=== PATIENT | male | born 1940 | race Asian ===

== ENCOUNTER 2016-11-01 13:50 | Inpatient (IN) | payer OTHER ==
--- NOTE | 2016-11-01 14:39 | PDOC ---
History of Present Illness <Leonel Crisostomo - Last Filed: 11/01/16 18:03> - General History Source: Patient Exam Limitations: No Limitations - History of Present Illness Initial Comments: 11/01/16 15:15 76y M hx of severe chf, hl, htn, dm, ?afib? on xerolto, has been having increased b/l LE edema and anasarca for atleast 3 weeks, has been attempting to manage this as an outpatient with , dr. rico wanted the pt to come to the ED for admission on thursday but the pt really didnt want to come. The pt has also been complainng of increasing sob, andhad an episode of cp 3 days ago. Pt notes mild cough, no fever/chills, current cp, n/v/d, abd pain. Pt currently on torsimide 150 BID. <Nehemias Ferrell - Last Filed: 11/02/16 09:16> - General Chief Complaint: Respiratory Stated Complaint: SOB Time Seen by Provider: 11/01/16 14:37 Past History <Leonel Crisostomo - Last Filed: 11/01/16 18:03> - Past Medical History Anemia: Yes Asthma: No Cancer: No Cardiac Disorders: Yes (ANGINA) CVA: No COPD: No CHF: No Dementia: No Diabetes: Yes (NIDDM) GI Disorders: No Disorders: No HTN: Yes Hypercholesterolemia: Yes Liver Disease: No Seizures: No Thyroid Disease: No - Surgical History Abdominal Surgery: No Appendectomy: No Cardiac Surgery: No Cholecystectomy: No Lung Surgery: No Neurologic Surgery: No Orthopedic Surgery: No - Psycho/Social/Smoking Cessation Hx Suicidal Ideation: No Smoking History: Never smoked Have you smoked in the past 12 months: No Hx Alcohol Use: No Drug/Substance Use Hx: No Substance Use Type: None Hx Substance Use Treatment: No <Nehemias Ferrell - Last Filed: 11/02/16 09:16> - Past Medical History Allergies/Adverse Reactions: Allergies Allergy/AdvReac Type Severity Reaction Status Date / Time No Known Drug Allergies Allergy Verified 11/01/16 13:56 Home Medications: Ambulatory Orders Atorvastatin Ca [Lipitor] 10 mg PO HS 11/01/16 Famotidine 20 mg PO DAILY 11/01/16 Glipizide Xl [Glucotrol Xl -] 5 mg PO DAILY 11/01/16 Insulin Glargine,Hum.rec.anlog [Lantus (nf)] 0 units SQ HS 11/01/16 Insulin Lispro [Humalog] 100 unit SQ ASDIR 11/01/16 Isosorbide Mononitrate [Isosorbide Mononitrate ER] 30 mg PO DAILY 11/01/16 Metoprolol Tartrate [Lopressor -] 50 mg PO BID 11/01/16 Potassium Citrate [Potassium Citrate ER] 10 meq PO DAILY 11/01/16 Rivaroxaban [Xarelto -] 15 mg PO DAILY 11/01/16 Sitagliptin Phosphate [Januvia] 50 mg PO DAILY 11/01/16 Torsemide 150 mg PO BID 11/01/16 Review of Systems - Review of Systems Able to Perform ROS?: Yes Comments:: 11/01/16 15:54 Constitutional - no reported Fever, Chills, weakness, HEENT: no reported vision changes, sore throat Respiratory: + sob, no reported cough, hemoptysis Cardiac: + chest pain, leg swelling no reported palpitations, light headedness , Abd/GI: no reported abd pain, nausea, vomiting, blood per rectum, melena, diarrhea : no reported dysuria, frequency, discharge Musculskelatal - no reported back pain, joint swelling skin - no reported bruising, erythema, rash neurological: no reported headache, numbness, focal weakness, tingling, ataxia, weakness hematologic: no reported anemia, easy bruising, easy bleeding <Nehemias Ferrell - Last Filed: 11/02/16 09:16> *Physical Exam - Vital Signs Last Vital Signs Temp Pulse Resp BP Pulse Ox 98.3 F 71 20 130/80 98 11/01/16 17:39 11/01/16 17:39 11/01/16 17:39 11/01/16 17:39 11/01/16 17:39 <Leonel Crisostomo - Last Filed: 11/01/16 18:03> - Vital Signs Last Vital Signs Temp Pulse Resp BP Pulse Ox 97.8 F 60 20 127/73 98 11/01/16 13:52 11/01/16 13:52 11/01/16 13:52 11/01/16 13:52 11/01/16 13:52 - Physical Exam Comments: 11/01/16 15:55 GENERAL: The patient is awake, alert, and fully oriented, Nontoxic - in no acute distress. HEAD: Normocephalic, atraumatic. EYES: extraocular movements intact, sclera anicteric, conjunctiva clear. ENT: Normal voice, Moist mucous membranes. NECK: Normal range of motion, supple LUNGS: Breath sounds equal, clear to auscultation bilaterally. No wheezes, no rhonchi, no rales. HEART: Regular rate and rhythm, normal S1 and S2 without murmur, rub or gallop. ABDOMEN: Soft, nontender, normoactive bowel sounds. No guarding, no rebound. . No CVA tenderness EXTREMITIES: Normal range of motion, +2pitting edema to abdomen. No clubbing or cyanosis. No cords, erythema, or tenderness. NEUROLOGICAL: No facial assymetry, Normal speech, moving all 4 extremitie spontaneously and symmetrically PSYCH: Normal mood, normal affect. SKIN: Warm, Dry, normal turgor, <Nehemias Ferrell - Last Filed: 11/02/16 09:16> Heart Score/ECG Review - ECG Impressions Comment:: 11/01/16 15:58 Twelve-lead EKG was performed and reviewed by me. Irregularly irregular Rate of [address] depressions in the inferior and lateral leads QTc interval of 505 Atrial fibrillation <Nehemias Ferrell - Last Filed: 11/02/16 09:16> ED Treatment Course - LABORATORY CBC & Chemistry Diagram: 11/01/16 14:45 11/01/16 14:45 - ADDITIONAL ORDERS Additional order review: Laboratory Results 11/01/16 11/01/16 14:45 14:45 INR 2.38 H Sodium 121 L* Potassium 4.0 Chloride 86 L D Carbon Dioxide 20 L Anion Gap 15 BUN 44 H D Creatinine 2.5 H Creat Clearance w eGFR 25.10 Random Glucose 284 H Calcium 8.8 Total Bilirubin 2.3 H D AST 65 H D ALT 91 H D Alkaline Phosphatase 409 H D Creatine Kinase 195 Creatine Kinase Index 3.3 CK-MB (CK-2) 6.581 H Troponin I 0.29 H B-Natriuretic Peptide 4032.31 H Total Protein 8.1 Albumin 3.6 11/01/16 14:45 RBC 4.55 MCV 79.1 L MCHC 32.5 RDW 16.4 H MPV 9.5 Neutrophils % 77.9 Lymphocytes % 9.1 Monocytes % 12.1 H Eosinophils % 0.5 Basophils % 0.4 <AayushLeonel briseno - Last Filed: 11/01/16 18:03> - LABORATORY CBC & Chemistry Diagram: 11/02/16 05:35 11/02/16 05:35 - RADIOLOGY Radiology Studies Ordered: Category Date Time Status CHEST X-RAY PORTABLE* [RAD] Stat Radiology 11/01/16 14:38 Ordered <Nehemias Ferrell - Last Filed: 11/02/16 09:16> Medical Decision Making - Medical Decision Making 11/01/16 18:[address] Rico. He will recommend lasix, but patient is upstairs already, so he will call for orders. <Leonel Crisostomo - Last Filed: 11/01/16 18:03> - Medical Decision Making 11/01/16 15:55 76-year-old gentleman multiple medical problems sent in from cardiology and PMD for evaluation of worsening anasarca, extremity edema. The patient has been failing outpatient management for his heart failure, patient has noted increasing shortness of breath as well as an episode of chest pain 3 days ago I suspect edema/anasaraca from chf labs reviewed hyponatremic to 120 [address] pts cr sightly above baseline at 2.5 pts lfts also elevated --> suspect from heart failure trop borderline and bnp at 400s cxr suggestion of infiltrate in L chest however pt not having any symptoms suggestive of anemia. 11/01/16 16:03 labs reviewed noted for severe hyponatermia case kush cabrera agreed with admission - requests consulting dr. rico and admission to the hosptialist team. A portion of this note was documented by scribe services under my direction. I have reviewed the details of the note, within reason, and agree with the documentation with the following case summary and management plan written by me 11/01/16 16:13 case kush vazquez agreed with admission asked for icu consultation case kush lizarraga and [employer] CONSULTANT ludmila from icu will give pt diuretic, sodium likely due to his anasarca will monitor, if worsening will upgrade to icu stable or tele for now. Case discussed in detail with admitting physician including history, physical exam and ancillary studies. Admitting physician has assumed care for the patient, will follow all pending diagnostics and will complete the evaluation and treatment. <Nehemias Ferrell - Last Filed: 11/02/16 09:16> *DC/Admit/Observation/Transfer - Attestations Scribe Attestion: 11/01/16 18:04 Documentation prepared by Leonel Crisostomo, acting as medical consultant for Nehemias Ferrell MD, MD. <Leonel Crisostomo - Last Filed: 11/01/16 18:03> - Discharge Dispostion Admit: Yes <Nehemias Ferrell - Last Filed: 11/02/16 09:16> Diagnosis at time of Disposition: Anasarca CHF (congestive heart failure) Qualifiers: Congestive heart failure type: combined Congestive heart failure chronicity: unspecified congestive heart failure chronicity Qualified Code(s): I50.40 - Unspecified combined systolic (congestive) and diastolic (congestive) heart failure - Referrals
[2016-11-01 14:53] LABS: BASOPHIL 0.4 % (0-2.0); EOSINOPHIL 0.5 % (0-4.5); MCH 25.7 pg (25.7-33.7); MCHC 32.5 g/dl (32.0-35.9); MEAN CELL VOLUME 79.1 fl (80-96); MEAN PLT VOLUME 9.5 fl (7.5-11.1); NEUTROPHILS 77.9 % (42.8-82.8); PLATELET COUNT 182 K/MM3 (134-434); RDW 16.4 % (11.9-15.9); WHITE BLOOD COUNT 8.8 K/mm3 (4.0-10.0)
[2016-11-01 15:05] LABS: INR 2.38 (0.82-1.09); PROTHROMBIN TIME (PATIENT) 26.7 SEC (9.98-11.88)
[2016-11-01 15:13] LABS: ALBUMIN 3.6 g/dl (3.4-5.0); BILIRUBIN,TOTAL 2.3 mg/dL (0.2-1.0); CALCIUM 8.8 mg/dL (8.5-10.1); CREATININE 2.5 mg/dL (0.7-1.3); TOT PROT 8.1 g/dl (6.4-8.2)
[2016-11-01 15:16] LABS: TROPONIN I 0.29 ng/ml (0.00-0.05)
[2016-11-01] MEDS ORDERED: IBUPROFEN 600 MG TABLET (FP) PO PRN (18:15)
[2016-11-01] MEDS ORDERED: FUROSEMIDE 40 MG/4 ML INJECTABLE VIAL IVPUSH ONE (18:16)
--- NOTE | 2016-11-01 18:20 | EKG ---
Test Reason : Blood Pressure : / mmHG Vent. Rate : 063 BPM Atrial Rate : 312 BPM P-R Int : 000 ms QRS Dur : 094 ms QT Int : 494 ms P-R-T Axes : 000 113 235 degrees QTc Int : 505 ms ATRIAL FIBRILLATION RIGHT AXIS DEVIATION PROLONGED QT ABNORMAL ECG NO PREVIOUS ECGS AVAILABLE Confirmed by JUDY GONZALEZ MD ([id number]) on 11/01/2016 6:20:00 PM Referred By: Confirmed By:JUDY GONZALEZ MD
--- NOTE | 2016-11-01 18:50 | HP ---
CHIEF COMPLAINT: "I have too much fluid and cant breathe " PCP: Dr Vaz Cardio: Dr Soriano Renal: Dr Trujillo HISTORY OF PRESENT ILLNESS: This is a 76 yo M with PMH of severe diastolic CHF, HTN, Poorly controlled IDDM (A1c=11.5) and a fib on xeralto, who presents due to chf exacerbation. Patient has gained over 10 lb in the past 3 weeks and noticed increased LE and abd edema. His orthopnea worsened (from 4 pillows to sitting up completely), he developed progressive sob, unable to take a deep breath because of abdominal girth, occasional l sided chest discomfort (pressure, pain) and occasional palpitations. He is unable to perform simple activities of daily living. He has been developing anorexia and constipation but denies n/v or abd pain. He also noticed decreased urine output but denies flank pain. He has a chronic dry cough. Denies seizure like activity or change in mental status. He has been treated by Dr Soriano for the past several years. Dr soriano performed a TTE on thu and urged patient o go to ED however patient refused until now. Patient is on toprol xl 50 bid, isosorbide 30 d and his torsemide was recently increased to 150 bid. His Na runs 129-130 at baseline, drops a week after he gets a dose of metolazone, which he received earlier this week. Patient has been refusing to get hospitalized for his chronic diastolic CHF to receive IV diuretics. Patient also complains of R sided TMJ joint pain exacerbated by chewing ER course was notable for: (1)CXR (2)labs Recent Travel: denies PAST MEDICAL HISTORY: as above PAST SURGICAL HISTORY:denies Social History: lives with brother in law Smoking:denies Alcohol:denies Drugs: denies Family History: chf, mi Allergies No Known Drug Allergies Allergy (Verified 11/01/16 13:56) HOME MEDICATIONS: Home Medications Medication Instructions Recorded Atorvastatin Ca [Lipitor] 10 mg PO HS 11/01/16 Famotidine 20 mg PO DAILY 11/01/16 Glipizide Xl [Glucotrol Xl -] 5 mg PO DAILY 11/01/16 Insulin Glargine,Hum.rec.anlog 0 units SQ HS 11/01/16 [Lantus (nf)] Insulin Lispro [Humalog] 100 unit SQ ASDIR 11/01/16 Isosorbide Mononitrate [Isosorbide 30 mg PO DAILY 11/01/16 Mononitrate ER] Metoprolol Tartrate [Lopressor -] 50 mg PO BID 11/01/16 Potassium Citrate [Potassium 10 meq PO DAILY 11/01/16 Citrate ER] Rivaroxaban [Xarelto -] 15 mg PO DAILY 11/01/16 Sitagliptin Phosphate [Januvia] 50 mg PO DAILY 11/01/16 Torsemide 100 mg PO BID 11/01/16 REVIEW OF SYSTEMS CONSTITUTIONAL: Absent: fever, chills HEENT: Absent: rhinorrhea, nasal congestion, throat pain, throat swelling, difficulty swallowing CARDIOVASCULAR: Absent: syncope RESPIRATORY: Absent: wheezing, stridor, hemoptysis GASTROINTESTINAL: Absent: abdominal pain, nausea, vomiting, diarrhea, melena, hematochezia GENITOURINARY: Absent: dysuria MUSCULOSKELETAL: Absent: back pain, neck pain SKIN: Absent: rash, itching, pallor HEMATOLOGIC/IMMUNOLOGIC: Absent: frequent infections ENDOCRINE: Absent: heat intolerance, cold intolerance NEUROLOGIC: Absent: headache, focal weakness or paresthesias PSYCHIATRIC: Absent: anxiety, depression PHYSICAL EXAMINATION Vital Signs - 24 hr 11/01/16 17:39 Temperature 98.3 F Pulse Rate [ 71 Left Radial] Respiratory 20 Rate Blood Pressure 130/80 [Left Arm] O2 Sat by Pulse 98 Oximetry (%) GENERAL: Awake, alert, and fully oriented, in mild distress. HEAD: Normal with no signs of trauma. EYES: Pupils equal, round and reactive to light, extraocular movements intact, sclera anicteric, conjunctiva clear. No lid lag. EARS, NOSE, THROAT: Moist mucous membranes. NECK: supple + JVD LUNGS: diffuse ronchi HEART: irregularly irregular, normal S1 and S2 without murmur, rub or gallop. ABDOMEN: Soft, nontender, distended, very edematous 3+ reduced bowel sounds MUSCULOSKELETAL: NNo CVA tenderness. UPPER EXTREMITIES: 2+ pulses, warm, well-perfused. No peripheral edema. LOWER EXTREMITIES: 2+ pulses, warm, well-perfused. 3+ peripheral edema. stasis dermatitis b/l NEUROLOGICAL: Cranial nerves II-XII grossly intact. PSYCHIATRIC: Cooperative. Good eye contact. Appropriate mood and affect. SKIN: Warm, dry ASSESSMENT/PLAN: This is a 76 yo M with PMH of severe diastolic CHF, HTN, Poorly controlled IDDM (A1c=11.5) and a fib on xeralto, who presents due to chf exacerbation. Acute on chronic HFPEF -Obtain recent TTE from Dr Soriano -tele monitoring -IV diuresis lasix 80 IV BID. Consider lasix drip -Dr Soriano: needs lasix 100 IVP. Prior to that would like renal opinion about whether to start him on Samsca -TFTs, Lipid panel -Strict I and O -daily weight -perez -continue home isosorbide 30d, toprol xl 50 d -hold torsemide 150 bid -asa 81 -pt -watch for metabolic alkalosis with diuresis -CMP BID for now HTN -diurese CHRISTIANO on CKD -baseline creat 2.3 now 2.5 -diurese Hyponatremia -baseline Na 129 now 121 -partially due to free water retention -recent metolazone intake -diurese -renal consult transaminitis -due to failure/congestion -trend lfts -hold lipitor 10 hs a fib -continue xeralto DM -a1c (last 11.5) -BGM -novolog sliding scale -levemir 15 bid (gentle starting dose) -diabetic diet FEN no ivf na, Cl, will improve with diuresis Diabetic diet Dispo: admit tele Problem List - Problem (1) Anasarca Code(s): R60.1 - GENERALIZED EDEMA (2) CHF (congestive heart failure) Code(s): I50.9 - HEART FAILURE, UNSPECIFIED Qualifiers: Congestive heart failure type: combined Congestive heart failure chronicity: unspecified congestive heart failure chronicity Qualified Code(s ): I50.40 - Unspecified combined systolic (congestive) and diastolic (congestive ) heart failure (3) (HFpEF) heart failure with preserved ejection fraction Code(s): I50.30 - UNSPECIFIED DIASTOLIC (CONGESTIVE) HEART FAILURE (4) Acute on chronic diastolic CHF (congestive heart failure) Code(s): I50.33 - ACUTE ON CHRONIC DIASTOLIC (CONGESTIVE) HEART FAILURE (5) CHRISTIANO (acute kidney injury) Code(s): N17.9 - ACUTE KIDNEY FAILURE, UNSPECIFIED (6) Cardiorenal disease Code(s): I13.10 - HYP HRT & CHR KDNY DIS W/O HRT FAIL, W STG 1-4/UNSP CHR KDNY (7) HTN (hypertension) Code(s): I10 - ESSENTIAL (PRIMARY) HYPERTENSION (8) Pulmonary congestion Code(s): R09.89 - OTH SYMPTOMS AND SIGNS INVOLVING THE CIRC AND RESP SYSTEMS (9) Volume overload Code(s): E87.70 - FLUID OVERLOAD, UNSPECIFIED (10) Lower extremity edema Code(s): R60.0 - LOCALIZED EDEMA (11) Uncontrolled diabetes mellitus Code(s): E11.65 - TYPE 2 DIABETES MELLITUS WITH HYPERGLYCEMIA Visit type - Emergency Visit Emergency Visit: Yes ED Registration Date: 11/01/16 Care time: The patient presented to the Emergency Department on the above date and was hospitalized for further evaluation of their emergent condition. - New Patient This patient is new to me today: Yes Date on this admission: 11/01/16 - Critical Care Critical Care patient: No
--- NOTE | 2016-11-01 18:53 | PN ---
Teaching Attending Note Name of Resident: Shannon Esparza ATTENDING PHYSICIAN STATEMENT I saw and evaluated the patient. I reviewed the resident's note and discussed the case with the resident. I agree with the resident's findings and plan as documented. SUBJECTIVE: This is a 76-year-old man with a history of CHF, HTN, hyperlipidemia , atrial fib, type 2 DM who comes to the ER with worsening edema, worsening SOB and weight gain over the last 3 weeks. He was advised to be admitted earlier in the week but he refused. He was given a dose of Zaroxolyn at that time but he has continued to worsen. OBJECTIVE: Vital Signs Period Temp Pulse Resp BP Sys/Meier Pulse Ox Last 24 Hr 97.8 F-98.4 F 60-71 20-22 127-136/73-80 93-100 HEART: Irregularly irregular LUNGS: Bibasilar rales ABDOMEN: Soft, distended, non-tender, normal BS EXTREMITIES: 3+ edema up to upper abdomen ASSESSMENT AND PLAN: 1. Acute on chronic right heart failure - Admit to telemetry - Hold Torsemide - Lasix IV - Monitor intake and output, weight - Cardiology consult 2. Acute kidney injury on stage 4 CKD, possibly cardiorenal syndrome - Monitor BUN, creatinine with diuresis 3. Hyponatremia - Secondary to diuretics and fluid overload - IV Lasix and monitor electrolytes 4. Chest pain - Serial troponins 5. Uncontrolled type 2 diabetes mellitus - Hold Januvia, Glucotrol XL - Continue Lantus - Fingersticks with Novolog sliding scale 6. Permanent atrial fibrillation - Rate controlled - Continue Lopressor, Xarelto 7. Hypertension - Continue Lopressor
[2016-11-01] MEDS: ASPIRIN 81 MG CHEWABLE TABLETS PO SCH (18:57)
[2016-11-01 20:02] LABS: INR 2.19 (0.82-1.09); PROTHROMBIN TIME (PATIENT) 24.5 SEC (9.98-11.88)
[2016-11-01 21:55] LABS: MAGNESIUM 2.2 mg/dL (1.8-2.4); PHOSPHOROUS 4.7 mg/dL (2.5-4.9)
[2016-11-01 21:57] LABS: ALBUMIN 3.5 g/dl (3.4-5.0); CALCIUM 8.5 mg/dL (8.5-10.1); CREATININE 2.5 mg/dL (0.7-1.3); TOT PROT 7.6 g/dl (6.4-8.2)
[2016-11-01] MEDS: INSULIN SLIDING SCALE (NOVOLOG) 1 VIAL SQ SCH (22:11)
[2016-11-01] MEDS: METOPROLOL SUCCINATE 50 MG TAB.SR.24H (FP) PO SCH (22:12)
[2016-11-01] MEDS: INSULIN DETEMIR 100 UNITS/ML MDV SQ SCH (22:12)
[2016-11-01] MEDS ORDERED: ALBUTEROL SO4 2.5/IPRATROPIUM 0.5 INH SOL 3 ML VIAL.NEB. NEB ONE (23:34)
[2016-11-02] MEDS ORDERED: ALBUTEROL SO4 0.083% IH SOL 2.5 MG/3 ML VIAL.NEB. NEB ONE ×2 (05:16→21:50)
[2016-11-02] MEDS: ALBUTEROL SO4 0.042% IH SOL 1.25 MG/3 ML VIAL.NEB NEB PRN ×3 (05:19→22:10)
[2016-11-02] MEDS ORDERED: FUROSEMIDE 40 MG/4 ML INJECTABLE VIAL IVPUSH SCH (06:00)
[2016-11-02] MEDS: INSULIN SLIDING SCALE (NOVOLOG) 1 VIAL SQ SCH ×3 (06:30→17:23)
[2016-11-02 07:27] LABS: MCH 25.8 pg (25.7-33.7); MCHC 32.9 g/dl (32.0-35.9); MEAN CELL VOLUME 78.4 fl (80-96); MEAN PLT VOLUME 9.4 fl (7.5-11.1); PLATELET COUNT 148 K/MM3 (134-434); RDW 16.2 % (11.9-15.9); WHITE BLOOD COUNT 6.7 K/mm3 (4.0-10.0)
[2016-11-02 08:00] LABS: ALBUMIN 3.5 g/dl (3.4-5.0); CALCIUM 8.7 mg/dL (8.5-10.1); MAGNESIUM 2.3 mg/dL (1.8-2.4)
[2016-11-02 08:09] LABS: CREATININE 2.5 mg/dL (0.7-1.3); FREE T4 1.38 ng/dl (0.76-1.16); PHOSPHOROUS 4.2 mg/dL (2.5-4.9); THYROID STIMULATING HORMONE 1.89 uIU/ml (0.358-3.74); TOT PROT 7.5 g/dl (6.4-8.2)
--- NOTE | 2016-11-02 09:05 | CON.CARD ---
Consult Consult Specialty:: cardio Referred by:: george Reason for Consultation:: chf - History of Present Illness Chief Complaint: chf History of Present Illness: 76 yo male followed by me in office with acute on chronic HFpEF of late, here for worsening swelling and new dizziness. has known HFpEF with at least moderate (possibly worse) pulmonary HTN on echo and evidence of RV dysfunction. being followed for me for <1 year. has had partial response to oral diuretics (torsemide 100mg am/50mg pm), with residual JVD but resolution of sob. chronic hyponatremia with Na at baseline 129-133. several months ago given one dose metolazone 2.5mg, sodium dropped to high 120s and took approx 2 weeks to come back up. seen by dr torres renal as outpt, labwork sent off, ? results. recently his weight went up several lbs and he developed incr swelling with signif incr sob. torsemide incr'd to 100 bid with no response. saw me in office, had repeat echo showing similar findings to above. i rec'd (again) inpatient diuresis with IV but he declined. i advised them we could try lower dose metolazone (1.25mg) and monitor Na, which he opted for instead--wt did not decline (169-170) but Na dropped from 129 to 126. i continued torsemide 100 bid and pt was to repeat labs and see me in office on 11/04. i informed pt and dtr that he will need RHC as i suspect his pulm HTN and RV dysfunction are out of proportion to LV diast failure, and this may be predominantly a pulm HTN phenomenon--he is considering the procedure. had stress test <1 yr ago (nuclear)--no ischemic felt discomfort in abdomen radiating to chest and back recently; resolved on its own; not severe; no assctd diaph/acute sob with it; felt like he had gas at the time PMH: afib HTN HPL DM CKD - Alcohol/Substance Use Hx Alcohol Use: No - Smoking History Smoking history: Never smoked Have you smoked in the past 12 months: No Home Medications - Allergies Allergies/Adverse Reactions: Allergies Allergy/AdvReac Type Severity Reaction Status Date / Time No Known Drug Allergies Allergy Verified 11/01/16 13:56 - Home Medications Home Medications: Ambulatory Orders Atorvastatin Ca [Lipitor] 10 mg PO HS 11/01/16 Famotidine 20 mg PO DAILY 11/01/16 Glipizide Xl [Glucotrol Xl -] 5 mg PO DAILY 11/01/16 Insulin Glargine,Hum.rec.anlog [Lantus (nf)] 0 units SQ HS 11/01/16 Insulin Lispro [Humalog] 100 unit SQ ASDIR 11/01/16 Isosorbide Mononitrate [Isosorbide Mononitrate ER] 30 mg PO DAILY 11/01/16 Metoprolol Tartrate [Lopressor -] 50 mg PO BID 11/01/16 Potassium Citrate [Potassium Citrate ER] 10 meq PO DAILY 11/01/16 Rivaroxaban [Xarelto -] 15 mg PO DAILY 11/01/16 Sitagliptin Phosphate [Januvia] 50 mg PO DAILY 11/01/16 Torsemide 150 mg PO BID 11/01/16 Family Disease History - Family Disease History Family History: Denies (no cmp) Review of Systems - Review of Systems Constitutional: denies: Chills, Fever Eyes: denies: Eye Pain HENT: denies: Nasal Congestion Neck: denies: Stiffness Cardiovascular: denies: Palpitations Respiratory: denies: Orthopnea, PND Gastrointestinal: denies: Diarrhea, Rectal Bleeding Genitourinary: denies: Burning, Hematuria Musculoskeletal: denies: Muscle Pain Integumentary: denies: Rash Neurological: denies: Numbness, Seizure, Syncope Endocrine: denies: Excessive Sweating Hematology/Lymphatic: denies: Excessive Bleeding Vital Signs: Vital Signs Temperature 97.7 F 11/02/16 05:23 Pulse Rate 70 11/02/16 05:23 Respiratory Rate 20 11/02/16 05:23 Blood Pressure 126/63 11/02/16 05:23 O2 Sat by Pulse Oximetry (%) 96 11/01/16 21:00 Constitutional: Yes: Well Nourished, No Distress Eyes: No: Sclera Icterus HENT: No: Nasal Congestion Neck: No: Decreased ROM Respiratory: Yes: CTA Bilaterally, Rales (bases). No: Accessory Muscle Use, Wheezes Gastrointestinal: Yes: Normal Bowel Sounds. No: Distention, Hepatomegaly, Palpable Mass, Tenderness Cardiovascular: Yes: Regular Rate and Rhythm JVD: Yes Carotid Bruit: No PMI: Non-Displaced Heart Sounds: Yes: S1, S2. No: Gallop Murmur: No: Systolic Murmur, Diastolic Murmur Musculoskeletal: Yes: Other (No kyphosis) Extremities: No: Cold Edema: Yes (2-3+ pretib) Peripheral Pulses: 2+ Left Carotid, 2+ Right Carotid, 2+ Left Doralis Pedis, 2+ Right Dorsalis Pedis Integumentary: No: Jaundice Neurological: Yes: Alert, Oriented (x3) Psychiatric: No: Agitated - Other Data Labs, Other Data: CBC, BMP 11/02/16 05:35 11/02/16 05:35 INR, PTT INR 2.19 (0.82-1.09) H 11/01/16 19:30 Troponin, BNP 11/01/16 11/02/16 11/02/16 21:15 03:00 05:35 Troponin I 0.25 H 0.25 H 0.22 H Troponin, BNP 11/01/16 11/02/16 11/02/16 21:15 03:00 05:35 Troponin I 0.25 H 0.25 H 0.22 H Laboratory Tests 11/02/16 11/02/16 11/02/16 03:00 05:35 05:35 WBC Hgb Plt Count Sodium 125 L Potassium 3.6 BUN 47 H Creatinine 2.5 H AST 60 H ALT 85 H Troponin I 0.25 H 0.22 H TSH 1.89 11/02/16 05:35 WBC 6.7 Hgb 10.7 L Plt Count 148 Sodium Potassium BUN Creatinine AST ALT Troponin I TSH tele: afib, HRs controlled Imaging - Results Chest X-ray: Report Reviewed, Image Reviewed Assessment/Plan acute on chronic HFpEF: -? 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 right sided pressures up with JVD but no sx's) 160s, recently up to 170 -11/02: 175 lbs; CXR reviewed: diffuse interstitial markings with infiltrate L base; no effusions or vascular redistrib--? all chf hyponatremia: -baseline Na 129-132 -was 126 few days ago s/o metolazone 1.25mg dose at home -121 on admit here--coming up overnight to 125 -per renal Afib: -HRs controlled on metoprolol -cont Xarelto 15mg (dose is per pt preference) elevated troponin: -NOT ACS -trop 0.2 x 4--secondary to chf/hi filling pressures -atypical cp sx's highly suggestive of gas/bloating/GI description abnl ECG: -ecg here afib, R axis, diffuse ST-Ts, prolonged QT -replete K (Mag good) -need to compare to prior office tracing -no clinical signs ACS CKD: -baseline creat 1.9-2.1; -currently worse (2.5), sec to cardiorenal syndrome most likely -observe trend with diuresis -cont nitrates (ismo) elevated AST/LT: -likely sec to RV failure/hepatic congestion -observe with diuresis HTN: -controlled -same meds HPL: -cont home statin DM: -per dr cabrera/hospitalists
[2016-11-02 09:33] LABS: TROPONIN I 0.23 ng/ml (0.00-0.05)
[2016-11-02] MEDS: PANTOPRAZOLE 20 MG TABLET (FP) PO SCH (09:39)
[2016-11-02] MEDS: ASPIRIN 81 MG CHEWABLE TABLETS PO SCH (09:39)
[2016-11-02] MEDS: RIVAROXABAN 15 MG TABLET PO SCH (09:39)
[2016-11-02] MEDS: METOPROLOL SUCCINATE 50 MG TAB.SR.24H (FP) PO SCH ×2 (09:39→21:19)
[2016-11-02] MEDS: RANITIDINE HCL 150 MG TABLET (FP) PO SCH (09:39)
[2016-11-02] MEDS: INSULIN DETEMIR 100 UNITS/ML MDV SQ SCH ×2 (09:40→21:19)
[2016-11-02] MEDS ORDERED: ISOSORBIDE MONONITRATE 30 MG TAB.SR.24H (FP) PO SCH (10:00)
[2016-11-02] MEDS: FUROSEMIDE 40 MG/4 ML INJECTABLE VIAL IVPUSH SCH ×2 (10:25→14:25)
--- NOTE | 2016-11-02 10:57 | PN ---
Progress Note (short form) - Note Progress Note: Subjective: feels his breathins is better , no fever or chills , no abd pain . Feels a little better today . Abd distention is better . and LE edema is better Objective: Vital Signs: Last Vital Signs Temp Pulse Resp BP Pulse Ox 98.4 F 71 20 121/63 98 11/02/16 10:00 11/02/16 10:00 11/02/16 10:00 11/02/16 10:00 11/02/16 09:00 Intake & Output 10/30/16 10/31/16 11/01/16 11/02/16 23:59 23:59 23:59 23:59 Output Total 700 900 Balance -700 -900 Weight 170 lb 175 lb 3.2 oz Physical Exam: NAD , CV: irreg irreg, No MRG, JVD Lungs: crackles half way down and scattered wheezes . Abd : distended , abd wall edema . no TTP Ext : 2+ pitting edema with erythema and no discharge Labs: Laboratory Results - last 24 hr 11/01/16 11/01/16 11/01/16 14:45 14:45 14:45 WBC 8.8 D RBC 4.55 Hgb 11.7 Hct 36.0 MCV 79.1 L MCHC 32.5 RDW 16.4 H Plt Count 182 D MPV 9.5 Neutrophils % 77.9 Lymphocytes % 9.1 Monocytes % 12.1 H Eosinophils % 0.5 Basophils % 0.4 INR 2.38 H Sodium 121 L* Potassium 4.0 Chloride 86 L D Carbon Dioxide 20 L Anion Gap 15 BUN 44 H D Creatinine 2.5 H Creat Clearance w eGFR 25.10 POC Glucometer Random Glucose 284 H Hemoglobin A1c % Calcium 8.8 Phosphorus Magnesium Total Bilirubin 2.3 H D AST 65 H D ALT 91 H D Alkaline Phosphatase 409 H D Creatine Kinase 195 Creatine Kinase Index 3.3 CK-MB (CK-2) 6.581 H Troponin I 0.29 H B-Natriuretic Peptide 4032.31 H Total Protein 8.1 Albumin 3.6 Triglycerides Cholesterol Total LDL Cholesterol HDL Cholesterol TSH Free T4 11/01/16 11/01/16 11/01/16 19:15 19:15 19:30 WBC RBC Hgb Hct MCV MCHC RDW Plt Count MPV Neutrophils % Lymphocytes % Monocytes % Eosinophils % Basophils % INR 2.19 H Sodium 122 L* Potassium 4.0 Chloride 87 L Carbon Dioxide 21 Anion Gap 14 BUN 47 H Creatinine 2.5 H Creat Clearance w eGFR 25.10 POC Glucometer Random Glucose 334 H* Hemoglobin A1c % Calcium 8.5 Phosphorus 4.7 D Magnesium 2.2 Total Bilirubin 2.0 H AST 57 H ALT 86 H Alkaline Phosphatase 381 H Creatine Kinase Creatine Kinase Index CK-MB (CK-2) Troponin I B-Natriuretic Peptide Total Protein 7.6 Albumin 3.5 Triglycerides Cholesterol Total LDL Cholesterol HDL Cholesterol TSH Free T4 11/01/16 11/01/16 11/02/16 21:15 22:10 03:00 WBC RBC Hgb Hct MCV MCHC RDW Plt Count MPV Neutrophils % Lymphocytes % Monocytes % Eosinophils % Basophils % INR Sodium Potassium Chloride Carbon Dioxide Anion Gap BUN Creatinine Creat Clearance w eGFR POC Glucometer 310 Random Glucose Hemoglobin A1c % Calcium Phosphorus Magnesium Total Bilirubin AST ALT Alkaline Phosphatase Creatine Kinase Creatine Kinase Index CK-MB (CK-2) Troponin I 0.25 H 0.25 H B-Natriuretic Peptide Total Protein Albumin Triglycerides Cholesterol Total LDL Cholesterol HDL Cholesterol TSH Free T4 11/02/16 11/02/16 11/02/16 05:35 05:35 05:35 WBC RBC Hgb Hct MCV MCHC RDW Plt Count MPV Neutrophils % Lymphocytes % Monocytes % Eosinophils % Basophils % INR Sodium 125 L Potassium 3.6 Chloride 89 L Carbon Dioxide 23 Anion Gap 13 BUN 47 H Creatinine 2.5 H Creat Clearance w eGFR 25.10 POC Glucometer Random Glucose 210 H D Hemoglobin A1c % 11.6 H Calcium 8.7 Phosphorus 4.2 Magnesium 2.3 Total Bilirubin 2.0 H AST 60 H ALT 85 H Alkaline Phosphatase 372 H Creatine Kinase Creatine Kinase Index CK-MB (CK-2) Troponin I 0.23 H 0.22 H B-Natriuretic Peptide Total Protein 7.5 Albumin 3.5 Triglycerides 70 Cholesterol 92 Total LDL Cholesterol Cancelled HDL Cholesterol 29 L TSH 1.89 Free T4 1.38 H 11/02/16 11/02/16 11/02/16 05:35 05:38 08:00 WBC 6.7 RBC 4.16 Hgb 10.7 L Hct 32.6 L MCV 78.4 L MCHC 32.9 RDW 16.2 H Plt Count 148 MPV 9.4 Neutrophils % Lymphocytes % Monocytes % Eosinophils % Basophils % INR Sodium Potassium Chloride Carbon Dioxide Anion Gap BUN Creatinine Creat Clearance w eGFR POC Glucometer 207 Random Glucose Hemoglobin A1c % Calcium Phosphorus Magnesium Total Bilirubin AST ALT Alkaline Phosphatase Creatine Kinase Creatine Kinase Index CK-MB (CK-2) Troponin I 0.23 H B-Natriuretic Peptide Total Protein Albumin Triglycerides Cholesterol Total LDL Cholesterol HDL Cholesterol TSH Free T4 Current Medications Generic Name Dose Route Start Last Admin Trade Name Freq PRN Reason Stop Dose Admin Albuterol Sulfate 1 amp 11/02/16 05:00 11/02/16 05:19 Ventolin 0.042trength) - NEB 1 amp Q4H PRN Administration SHORT OF BREATH/WHEEZING Aspirin 81 mg 11/01/16 18:30 11/02/16 09:39 Asa - PO 81 mg DAILY RENEE Administration Furosemide 100 mg 11/02/16 10:00 Lasix Injection - IVPUSH BIDLASIX RENEE Ibuprofen 600 mg 11/01/16 18:15 Motrin - PO Q6H PRN FEVER Insulin Aspart 1 vial 11/01/16 18:30 11/02/16 06:30 Novolog Vial Sliding Scale - SQ 4 units TIDAC RENEE Administration Protocol Insulin Detemir 15 units 11/01/16 22:00 11/02/16 09:40 Levemir Vial SQ 15 units BID RENEE Administration Isosorbide Mononitrate 30 mg 11/02/16 10:00 11/02/16 09:39 Imdur - PO 30 mg DAILY RENEE Administration Metoprolol Succinate 50 mg 11/01/16 22:00 11/02/16 09:39 Toprol Xl - PO 50 mg BID RENEE Administration Pantoprazole Sodium 20 mg 11/02/16 10:00 11/02/16 09:39 Protonix - PO 20 mg DAILY RENEE Administration Potassium Chloride 20 meq 11/02/16 10:00 K-Dur - PO DAILY RENEE Ranitidine HCl 150 mg 11/02/16 10:00 11/02/16 09:39 Zantac - PO 150 mg DAILY RENEE Administration Rivaroxaban 15 mg 11/02/16 10:00 11/02/16 09:39 Xarelto - PO 15 mg DAILY RENEE Administration Imaging: Cxray reviewed. Assessment/Plan: 76 y/o man with h/o Diastolic CHF , HTN, CKD , A fib on xarelto , and untreated anxiety . He presented with worsening LE edema , SOB , and hyponatremia . 1- Acute on chronic D CHF : sx slightly improved. Cxray still congested EKG with R axis , inverted T waves in lateral and inferior leads - lasix 100 BID . - weight daily and I&O - cont BB . - case d/w Dr. Rico . will need a R heart cath . - echo as an out pt showed NL EF. 2- Hyponatremia : due to heart failure and metolazone use - already improved appropriately with diuresis . - cont diuresis - repeat NA today 3- A fib : rate controlled on current meds - cont BB - cont xarelto 4- CHRISTIANO on CKD : renal function worse due to decreased [employer]. expect it to improve with diuresis - cont diuresis and monitor - dc ibuprofen and avoid nephrotoxic meds 5- DM : at home on n januvia 50 and glipizide xl 5 mg , as well as lantus and SSI of humalog . A1c 11 . need more control - hold po pills and cont insulin - levemir 15 BID - SSI - at dc will decrease januvia barr to 25 fro renal function 6- HLOC Visit type - Emergency Visit Emergency Visit: Yes ED Registration Date: 11/01/16 Care time: The patient presented to the Emergency Department on the above date and was hospitalized for further evaluation of their emergent condition. - New Patient This patient is new to me today: No - Critical Care Critical Care patient: No
[2016-11-02] MEDS: POTASSIUM CHLORIDE TABS 20 MEQ TABLET.ER (FP) PO SCH (11:26)
[2016-11-02 12:11] VITALS: BMI 28.3
--- NOTE | 2016-11-02 12:11 | CON.NEP ---
Consult Consult Specialty:: Nephrology Reason for Consultation:: hyponatremia - History of Present Illness Chief Complaint: dyspnea History of Present Illness: This is a 76 year old man with a history of ckd, htn, dm, chf who presents for dyspnea and hyponatremia. He has been retaining fluid and has been dyspneic. Recently has also been having LUTS. He was placed on metolazone and worsened his hyponatremia. He is followed by Dr Trujillo. - History Source History Provided By: Family Member, Medical Record Limitations to Obtaining History: No Limitations - Past Medical History Cardio/Vascular: Yes: CHF, HTN Renal/: Yes: Renal Inusuff, BPH Endocrine: Yes: Diabetes Mellitus - Alcohol/Substance Use Hx Alcohol Use: No - Smoking History Smoking history: Never smoked Have you smoked in the past 12 months: No Home Medications - Allergies Allergies/Adverse Reactions: Allergies Allergy/AdvReac Type Severity Reaction Status Date / Time No Known Drug Allergies Allergy Verified 11/01/16 13:56 - Home Medications Home Medications: Ambulatory Orders Atorvastatin Ca [Lipitor] 10 mg PO HS 11/01/16 Famotidine 20 mg PO DAILY 11/01/16 Glipizide Xl [Glucotrol Xl -] 5 mg PO DAILY 11/01/16 Insulin Glargine,Hum.rec.anlog [Lantus (nf)] 20 units SQ HS 11/01/16 Insulin Lispro [Humalog] See Protocol SQ AC 11/01/16 Isosorbide Mononitrate [Isosorbide Mononitrate ER] 30 mg PO DAILY 11/01/16 Metoprolol Tartrate [Lopressor -] 50 mg PO BID 11/01/16 Potassium Citrate [Potassium Citrate ER] 10 meq PO BID 11/01/16 Rivaroxaban [Xarelto -] 15 mg PO DAILY 11/01/16 Sitagliptin Phosphate [Januvia] 50 mg PO DAILY 11/01/16 Torsemide 150 mg PO BID 11/01/16 Review of Systems - Review of Systems Constitutional: reports: Weakness Eyes: reports: No Symptoms HENT: reports: No Symptoms Neck: reports: No Symptoms Cardiovascular: reports: Edema, Shortness of Breath Respiratory: reports: Orthopnea Gastrointestinal: reports: No Symptoms Genitourinary: reports: Frequency, Other (hesitancy) Musculoskeletal: reports: No Symptoms Integumentary: reports: No Symptoms Neurological: reports: No Symptoms Endocrine: reports: No Symptoms Hematology/Lymphatic: reports: No Symptoms Psychiatric: reports: No Symptoms Nephrology Consult - Height Height: 5 ft 6 in - Weight Weight: 175 lb 3.2 oz - BMI Body Mass Index (BMI): 28.3 - Lab Results CBC,BMP: CBC, BMP 11/02/16 05:35 11/02/16 05:35 Anion Gap: Anion Gap 13 (8-16) 11/02/16 05:35 - Imaging Chest X-ray: Report Reviewed EKG: Report Reviewed (afib) - Physical Examination Vital Signs: Vital Signs Temperature 98.4 F 11/02/16 10:00 Pulse Rate 71 11/02/16 10:00 Respiratory Rate 20 11/02/16 10:00 Blood Pressure 121/63 11/02/16 10:00 O2 Sat by Pulse Oximetry (%) 98 11/02/16 09:00 Constitutional: Yes: Well Nourished Eyes: Yes: Conjunctiva Clear HENT: Yes: Atraumatic, Normocephalic Neck: Yes: Supple, Trachea Midline Cardiovascular: Yes: Pulse Irregular Respiratory: Yes: Rales Gastrointestinal: Yes: Normal Bowel Sounds, Abdomen, Obese, Ascites Renal/: Yes: Perez Present Edema: Yes Edema: LLE: 2+, RLE: 2+ Integumentary: Yes: WNL Neurological: Yes: Alert, Oriented Psychiatric: Yes: Alert, Oriented Assessment/Plan IMPRESSION hyponatremia from congestive failure pt has anasarca from heart failure alphonso/ckd BPH with LUTS may be contributing to renal dysfunction and fluid retention PLAN discussed with cardiology will keep on loop diuretics. If po does ot work can try IV (preferrable) tolvaptan is an option would keep perez in place no flomax for now since it can drop BP but will start at some point renal sono avoid nephrotoxins including NSAIDS MV
[2016-11-02] MEDS ORDERED: PT OWN MED DRAWER 7, Y5N ONE ×2 (12:20→17:10)
[2016-11-02 14:11] LABS: CALCIUM 8.7 mg/dL (8.5-10.1); CREATININE 2.6 mg/dL (0.7-1.3)
[2016-11-02] MEDS ORDERED: LIDOCAINE HCL 2% JELLY (30 ML/TUBE) TP ONE (16:35)
[2016-11-02] MEDS ORDERED: ACETAMINOPHEN 325 MG TABLET (FP) PO ONE (21:02)
[2016-11-03] MEDS ORDERED: ALBUTEROL SO4 0.083% IH SOL 2.5 MG/3 ML VIAL.NEB. NEB ONE (03:09)
[2016-11-03] MEDS: ALBUTEROL SO4 0.042% IH SOL 1.25 MG/3 ML VIAL.NEB NEB PRN (03:32)
[2016-11-03] MEDS: INSULIN SLIDING SCALE (NOVOLOG) 1 VIAL SQ SCH ×3 (06:39→16:55)
[2016-11-03] MEDS: FUROSEMIDE 40 MG/4 ML INJECTABLE VIAL IVPUSH SCH (06:39)
[2016-11-03 07:51] LABS: CALCIUM 8.5 mg/dL (8.5-10.1); CREATININE 2.7 mg/dL (0.7-1.3); MAGNESIUM 2.5 mg/dL (1.8-2.4)
--- NOTE | 2016-11-03 09:01 | PN ---
Progress Note, Physician Chief Complaint: chf History of Present Illness: less sob, slept well overnight; dtr says abd much less distended, legs less swollen; no cp, palpit no cigs - Current Medication List Current Medications: Active Medications Albuterol Sulfate (Ventolin 0.042trength) -) 1 amp NEB Q4H PRN PRN Reason: SHORT OF BREATH/WHEEZING Last Admin: 11/03/16 03:32 Dose: 1 amp Aspirin (Asa -) 81 mg PO DAILY [facility] Last Admin: 11/02/16 09:39 Dose: 81 mg Furosemide (Lasix Injection -) 100 mg IVPUSH BIDLASIX [facility] Last Admin: 11/03/16 06:39 Dose: 100 mg Insulin Aspart (Novolog Vial Sliding Scale -) 1 vial SQ TIDAC [facility] PRN Reason: Protocol Last Admin: 11/03/16 06:39 Dose: 2 units Insulin Detemir (Levemir Vial) 15 units SQ BID [facility] Last Admin: 11/02/16 21:19 Dose: 15 units Isosorbide Mononitrate (Imdur -) 30 mg PO DAILY [facility] Last Admin: 11/02/16 09:39 Dose: 30 mg Metoprolol Succinate (Toprol Xl -) 50 mg PO BID [facility] Last Admin: 11/02/16 21:19 Dose: 50 mg Pantoprazole Sodium (Protonix -) 20 mg PO DAILY [facility] Last Admin: 11/02/16 09:39 Dose: 20 mg Potassium Chloride (K-Dur -) 20 meq PO DAILY [facility] Last Admin: 11/02/16 11:26 Dose: 20 meq Ranitidine HCl (Zantac -) 150 mg PO DAILY [facility] Last Admin: 11/02/16 09:39 Dose: 150 mg Rivaroxaban (Xarelto -) 15 mg PO DAILY [facility] Last Admin: 11/02/16 09:39 Dose: 15 mg - Objective Vital Signs: Vital Signs Temperature 98.4 F 11/03/16 06:00 Pulse Rate 86 11/03/16 06:00 Respiratory Rate 22 11/03/16 06:00 Blood Pressure 133/70 11/03/16 06:00 O2 Sat by Pulse Oximetry (%) 98 11/02/16 21:00 Constitutional: Yes: No Distress, Calm Eyes: No: Sclera Icterus HENT: No: Nasal Congestion Cardiovascular: Yes: Pulse Irregular, JVD, S1, S2, Other (PMI non diplaced). No : Gallop, Murmur Respiratory: Yes: CTA Bilaterally, Rales (bases). No: Accessory Muscle Use, Wheezes Gastrointestinal: Yes: Normal Bowel Sounds, Soft. No: Tenderness Musculoskeletal: Yes: Other (No kyphosis) Extremities: No: Cold Edema: Yes (3+ ankles, 1+ pretib) Integumentary: No: Jaundice Neurological: Yes: Alert, Oriented (x3) Psychiatric: No: Agitated Labs: CBC, BMP 11/02/16 05:35 11/03/16 05:32 INR, PTT INR 2.19 (0.82-1.09) H 11/01/16 19:30 - ....Imaging EKG: Other (tele: afib, good HRs) Assessment/Plan Echo 10/24: nl LV/EF; could not estimate LV diastolic filling pattern or LA pressure (pt in afib); moderate RV dilation with mild hypokinesis; mild-mod MR; mod-severe TR; RVSP is at least 66-71mmHG 03/25 study: RV appeared mildly enlarged with normal systolic function, only mild -mod TR, and RVSP at least 60 mmHG on 03/25 echo study acute on chronic HFpEF: -? 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 right sided pressures up with JVD but no sx's) 160s, recently up to 170 -11/02: 175 lbs; CXR reviewed: diffuse interstitial markings with infiltrate L base; no effusions or vascular redistrib--? all chf -11/03: wt down 4 lbs (171) with 2100 cc UOP yest (perez in) s/p lasix 100mg IV bid; bun/creat worsening -worsening renal fxn despite effective diuresis raises concern of other etiology of CHRISTIANO (other than cardiorenal syndrome)--renal sono to r/o obstruction...? ATN from prolonged decompensated right heart failure -will continue diuresis; add milrinone in case pt is RV low output -rec transfer for RHC/chf mgmt at [facility], dtr agrees--ins not par with sp; have put in a call to chf with dr cooley at [facility] -change imdur 30 to nitropaste 1 inch q6h, ? cardiorenal syndrome hyponatremia: -baseline Na 129-132 -was 126 few days ago s/o metolazone 1.25mg dose at home -121 on admit here--came up rapidly -Na back to baseline (130), likely due to resolution of metolazone effect ( given at home shortly prior to admit) and fluid restriction here CHRISTIANO on CKD: -baseline creat 1.9-2.1; -worse here on DOA (2.5), and worsening despite good diuretic response -? cardiorenal syndrome; ? ATN (from same); ? other -hold lasix today--chf mgmt as above -check renal US -cont nitrates (ismo) Afib: -HRs controlled on metoprolol -cont Xarelto 15mg (dose is per pt preference) elevated troponin: -NOT ACS -trop 0.2 x 4--secondary to chf/hi filling pressures -atypical cp sx's highly suggestive of gas/bloating/GI description hi LFTs: -alk phos/bili > AST/LT -likely sec to RV failure/hepatic congestion -check RUQ on sono -observe trend with diuresis HTN: -controlled -same meds HPL: -cont home statin DM: -per dr cabrera/hospitalists
[2016-11-03 09:42] LABS: ALBUMIN 3.5 g/dl (3.4-5.0)
[2016-11-03 09:45] LABS: BILIRUBIN,DIRECT 1.3 mg/dL (0.0-0.2); BILIRUBIN,TOTAL 1.8 mg/dL (0.2-1.0); TOT PROT 7.5 g/dl (6.4-8.2)
[2016-11-03] MEDS: PANTOPRAZOLE 20 MG TABLET (FP) PO SCH (09:52)
[2016-11-03] MEDS: RIVAROXABAN 15 MG TABLET PO SCH (09:52)
[2016-11-03] MEDS: POTASSIUM CHLORIDE TABS 20 MEQ TABLET.ER (FP) PO SCH (09:52)
[2016-11-03] MEDS: METOPROLOL SUCCINATE 50 MG TAB.SR.24H (FP) PO SCH (09:52)
[2016-11-03] MEDS: RANITIDINE HCL 150 MG TABLET (FP) PO SCH (09:53)
[2016-11-03] MEDS ORDERED: MILRINONE 20MG/100ML IVPB - 100 ML IVPB SCH (11:00)
[2016-11-03] MEDS: NITROGLYCERIN 2% OINTMENT - 1GM PACKET TD SCH ×2 (11:14→17:05)
--- NOTE | 2016-11-03 12:10 | PN ---
Teaching Attending Note Name of Resident: Shannon Esparza ATTENDING PHYSICIAN STATEMENT I saw and evaluated the patient. I reviewed the resident's note and discussed the case with the resident. I agree with the resident's findings and plan as documented. SUBJECTIVE: no fever or chills, he feels much better ( breathing and edema ) , has minimal bleed from tip of penis . OBJECTIVE: NAD , CV: irreg irreg, No MRG, JVD Lungs: crackles at bases today , no wheezes Ext : 2+ pitting edema with erythema and no discharge Assessment/Plan: 76 y/o man with h/o Diastolic CHF , HTN, CKD , A fib on xarelto , and untreated anxiety . He presented with worsening LE edema , SOB , and hyponatremia . 1- Acute on chronic D CHF: Sx significantly improved. weight was documented incorrectly this am . Despite his renal function slightly increased, he will benefit from diuresis to euvolemia , and hopefully his renal function will improve. - cont lasix 100 BID . - weight daily and I&O - cont BB , and nitrate ( short acting now ) - Started on milrinone - case d/w Dr. Rico . Possible transfer to [facility] - nj aspirin 2- Hyponatremia : due to heart failure and metolazone use - improved to base line , cont to monitor 3- A fib : rate controlled on current meds - cont BB - cont xarelto , dc aspirin 4- CHRISTIANO on CKD : still prerenal azotemia form cardiorenal syndrome is the likely diagnoses. - cont diuresis - check U cr, and urea to calculate Fe Urea. - will ask renal to look at Sediment . - renal US pending 5- DM : - increase AM levemir to 18 units and cont 15 in evening - SSI - at dc will decrease januvia barr to 25 for renal function 6- Transaminitis : due to hepatic congestion . LFTs are slightly better today . US pending HLOC . possible transfer fro [facility]
[2016-11-03] MEDS ORDERED: FUROSEMIDE 100 MG/10 ML INJECTABLE VIAL IVPUSH SCH (14:00)
--- NOTE | 2016-11-03 14:40 | PN ---
Addendum entered and electronically signed by Shannon Esparza RES 11/03/16 15: 01: on d/c patient will stop metformin and decrease januvia to 25 d due to ckd Original Note: Physical Exam: SUBJECTIVE: Patient seen and examined Resting in bed nad. No acute events. duiresed over 2 L. afebrile and hemodynamically stable. feels much better. has better breathing, less orthopnea , improved appetite and less LE and abd edema. only complaints are dry nose due to NC and some mild bleeding from urethra due to perez insertion. Denies f/c, chest pain, palpitations, loc, abd pain, n/v, diaphoresis. OBJECTIVE: Vital Signs Period Temp Pulse Resp BP Sys/Meier Pulse Ox Last 24 Hr 97.6 F-98.8 F 64-86 18-22 116-148/60-80 96-98 GENERAL: Awake, alert, and fully oriented HEAD: Normal with no signs of trauma. EYES: Pupils equal, round and reactive to light, extraocular movements intact, sclera anicteric, conjunctiva clear. No lid lag. EARS, NOSE, THROAT: Moist mucous membranes. NECK: supple + JVD LUNGS: bibasilar crackles, improved HEART: irregularly irregular, normal S1 and S2 without murmur, rub or gallop. ABDOMEN: Soft, nontender, distended, very edematous 3+ reduced bowel sounds, appears better (smaller, softer) MUSCULOSKELETAL: No CVA tenderness. UPPER EXTREMITIES: 2+ pulses, warm, well-perfused. No peripheral edema. LOWER EXTREMITIES: 2+ pulses, warm, well-perfused. 3+ peripheral edema. stasis dermatitis b/l. improved NEUROLOGICAL: Cranial nerves II-XII grossly intact. PSYCHIATRIC: Cooperative. Good eye contact. Appropriate mood and affect. SKIN: Warm, dry Laboratory Results - last 24 hr 11/02/16 11/02/16 11/02/16 14:45 17:00 21:16 Sodium 127 L Potassium Chloride Carbon Dioxide Anion Gap BUN Creatinine POC Glucometer 293 363 Random Glucose Calcium Magnesium Total Bilirubin Direct Bilirubin AST ALT Alkaline Phosphatase Total Protein Albumin 11/03/16 11/03/16 11/03/16 05:32 05:32 05:49 Sodium 130 L Potassium 3.6 Chloride 94 L Carbon Dioxide 25 Anion Gap 11 BUN 52 H Creatinine 2.7 H POC Glucometer 171 Random Glucose 176 H D Calcium 8.5 Magnesium 2.5 H Total Bilirubin 1.8 H Cancelled Direct Bilirubin 1.3 H Cancelled AST 66 H Cancelled ALT 93 H Cancelled Alkaline Phosphatase 335 H Cancelled Total Protein 7.5 Cancelled Albumin 3.5 Cancelled 11/03/16 11:16 Sodium Potassium Chloride Carbon Dioxide Anion Gap BUN Creatinine POC Glucometer 180 Random Glucose Calcium Magnesium Total Bilirubin Direct Bilirubin AST ALT Alkaline Phosphatase Total Protein Albumin Active Medications Generic Name Dose Route Start Last Admin Trade Name Freq PRN Reason Stop Dose Admin Albuterol Sulfate 1 amp 11/02/16 05:00 11/03/16 03:32 Ventolin 0.042trength) - NEB 1 amp Q4H PRN Administration SHORT OF BREATH/WHEEZING Furosemide 100 mg 11/03/16 14:00 11/03/16 13:37 Lasix Injection - IVPUSH 100 mg BID@0600,1400 RENEE Administration Milrinone Lactate/Dextrose 100 mls @ 5.822 mls/hr 11/03/16 11:00 11/03/16 11:14 Milrinone 20mg/100ml Ivpb - IVPB 5.822 mls/hr TITR RENEE Administration 0.25 MCG/KG/MIN Insulin Aspart 1 vial 11/01/16 18:30 11/03/16 11:17 Novolog Vial Sliding Scale - SQ 2 units TIDAC RENEE Administration Protocol Insulin Detemir 15 units 11/03/16 22:00 Levemir Vial SQ HS [facility] Insulin Detemir 18 units 11/04/16 07:00 Levemir Vial SQ AM [facility] Metoprolol Succinate 50 mg 11/01/16 22:00 11/03/16 09:52 Toprol Xl - PO 50 mg BID RENEE Administration Nitroglycerin 1 inch 11/03/16 12:00 11/03/16 11:14 Nitro-Bid 2% Paste - TD 1 inch Q6HPO RENEE Administration Pantoprazole Sodium 20 mg 11/02/16 10:00 11/03/16 09:52 Protonix - PO 20 mg DAILY RENEE Administration Potassium Chloride 20 meq 11/02/16 10:00 11/03/16 09:52 K-Dur - PO 20 meq DAILY RENEE Administration Ranitidine HCl 150 mg 11/02/16 10:00 11/03/16 09:53 Zantac - PO 150 mg DAILY RENEE Administration Rivaroxaban 15 mg 11/02/16 10:00 11/03/16 09:52 Xarelto - PO 15 mg DAILY RENEE Administration ASSESSMENT/PLAN: This is a 76 yo M with PMH of severe diastolic CHF, HTN, Poorly controlled IDDM (A1c=11.5) and a fib on xeralto, who presents due to chf exacerbation. Acute on chronic HFPEF -recent TTE normal LVEF, mild MR, mod/severe TR, RVSP 70 -tele monitoring no acute events -IV diuresis lasix 100 IV BID. negative fluid balance, diuresed 2100 yesterday, edema improved -clinically improved -Dr Rico: start milrinone, december xfer for R heart cath -TFTs wnl, lipi panel wnl -Strict I and O -daily weight (scale malfunctioned, patient did not gain weight) -perez -hold isosorbide -hold torsemide 150 bid -NTG, toprol xl 50 d -stop asa 81 -pt -watch for metabolic alkalosis with diuresis -1 L fluid restriction HTN -diurese CHRISTIANO on CKD -baseline creat 2.3 now 2.7 trending up -diurese -urine lytes -spin urine Hyponatremia -baseline Na 129 now 130 transaminitis -due to failure/congestion -trend lfts -hold lipitor 10 hs -RUQ US -no improvement yet a fib -continue xeralto DM -a1c (last 11.5) -BGM -novolog sliding scale (required 14 u yesterday, sugars higher in evening -levemir 18 u am 15 u PM -diabetic diet FEN no ivf na, Cl, will improve with diuresis Diabetic diet Dispo: admit tele Problem List - Problems (1) Anasarca Code(s): R60.1 - GENERALIZED EDEMA (2) CHF (congestive heart failure) Code(s): I50.9 - HEART FAILURE, UNSPECIFIED Qualifiers: Congestive heart failure type: combined Congestive heart failure chronicity: unspecified congestive heart failure chronicity Qualified Code(s ): I50.40 - Unspecified combined systolic (congestive) and diastolic (congestive ) heart failure (3) (HFpEF) heart failure with preserved ejection fraction Code(s): I50.30 - UNSPECIFIED DIASTOLIC (CONGESTIVE) HEART FAILURE (4) Acute on chronic diastolic CHF (congestive heart failure) Code(s): I50.33 - ACUTE ON CHRONIC DIASTOLIC (CONGESTIVE) HEART FAILURE (5) CHRISTIANO (acute kidney injury) Code(s): N17.9 - ACUTE KIDNEY FAILURE, UNSPECIFIED (6) Cardiorenal disease Code(s): I13.10 - HYP HRT & CHR KDNY DIS W/O HRT FAIL, W STG 1-4/UNSP CHR KDNY (7) HTN (hypertension) Code(s): I10 - ESSENTIAL (PRIMARY) HYPERTENSION (8) Pulmonary congestion Code(s): R09.89 - OTH SYMPTOMS AND SIGNS INVOLVING THE CIRC AND RESP SYSTEMS (9) Volume overload Code(s): E87.70 - FLUID OVERLOAD, UNSPECIFIED (10) Lower extremity edema Code(s): R60.0 - LOCALIZED EDEMA (11) Uncontrolled diabetes mellitus Code(s): E11.65 - TYPE 2 DIABETES MELLITUS WITH HYPERGLYCEMIA Visit type - Emergency Visit Emergency Visit: Yes ED Registration Date: 11/01/16 Care time: The patient presented to the Emergency Department on the above date and was hospitalized for further evaluation of their emergent condition. - New Patient This patient is new to me today: No - Critical Care Critical Care patient: No - Discharge Referral Referred to [facility] Med P.C.: No
--- NOTE | 2016-11-03 15:40 | PN ---
Progress Note, Physician History of Present Illness: Pt seen and examined at bedside. He feels a little better today. He still has shortness of breath and significant edema. - Current Medication List Current Medications: Active Medications Albuterol Sulfate (Ventolin 0.042trength) -) 1 amp NEB Q4H PRN PRN Reason: SHORT OF BREATH/WHEEZING Last Admin: 11/03/16 03:32 Dose: 1 amp Furosemide (Lasix Injection -) 100 mg IVPUSH BID@0600,1400 [facility] Last Admin: 11/03/16 13:37 Dose: 100 mg Milrinone Lactate/Dextrose (Milrinone 20mg/100ml Ivpb -) 100 mls @ 5.822 mls/ hr IVPB TITR RENEE PRN Reason: 0.25 MCG/KG/MIN Last Admin: 11/03/16 11:14 Dose: 5.822 mls/hr Insulin Aspart (Novolog Vial Sliding Scale -) 1 vial SQ TIDAC [facility] PRN Reason: Protocol Last Admin: 11/03/16 11:17 Dose: 2 units Insulin Detemir (Levemir Vial) 15 units SQ HS [facility] Insulin Detemir (Levemir Vial) 18 units SQ AM [facility] Metoprolol Succinate (Toprol Xl -) 50 mg PO BID [facility] Last Admin: 11/03/16 09:52 Dose: 50 mg Nitroglycerin (Nitro-Bid 2% Paste -) 1 inch TD Q6HPO [facility] Last Admin: 11/03/16 11:14 Dose: 1 inch Pantoprazole Sodium (Protonix -) 20 mg PO DAILY [facility] Last Admin: 11/03/16 09:52 Dose: 20 mg Potassium Chloride (K-Dur -) 20 meq PO DAILY [facility] Last Admin: 11/03/16 09:52 Dose: 20 meq Ranitidine HCl (Zantac -) 150 mg PO DAILY [facility] Last Admin: 11/03/16 09:53 Dose: 150 mg Rivaroxaban (Xarelto -) 15 mg PO DAILY [facility] Last Admin: 11/03/16 09:52 Dose: 15 mg - Objective Vital Signs: Vital Signs Temperature 98 F 11/03/16 10:00 Pulse Rate 64 11/03/16 13:43 Respiratory Rate 20 11/03/16 13:43 Blood Pressure 120/60 11/03/16 13:43 O2 Sat by Pulse Oximetry (%) 96 11/03/16 11:00 Constitutional: Yes: Calm Eyes: Yes: Conjunctiva Clear HENT: Yes: Atraumatic Cardiovascular: Yes: S1, S2 Respiratory: Yes: On Nasal O2, Rhonchi, SOB Gastrointestinal: Yes: Soft Genitourinary: Yes: Morse Present Musculoskeletal: Yes: Muscle Weakness Edema: Yes Edema: LLE: 2+, RLE: 2+ Neurological: Yes: Oriented Psychiatric: Yes: Oriented Labs: CBC, BMP 11/02/16 05:35 11/03/16 05:32 INR, PTT INR 2.19 (0.82-1.09) H 11/01/16 19:30 Problem List - Problems (1) CHF (congestive heart failure) Code(s): I50.9 - HEART FAILURE, UNSPECIFIED Qualifiers: Congestive heart failure type: combined Congestive heart failure chronicity: unspecified congestive heart failure chronicity Qualified Code(s ): I50.40 - Unspecified combined systolic (congestive) and diastolic (congestive ) heart failure (2) Cardiorenal disease Code(s): I13.10 - HYP HRT & CHR KDNY DIS W/O HRT FAIL, W STG 1-4/UNSP CHR KDNY (3) HTN (hypertension) Code(s): I10 - ESSENTIAL (PRIMARY) HYPERTENSION (4) CKD (chronic kidney disease) Code(s): N18.9 - CHRONIC KIDNEY DISEASE, UNSPECIFIED Assessment/Plan Current Medications Generic Name Dose Route Start Last Admin Trade Name Freq PRN Reason Stop Dose Admin Albuterol Sulfate 1 amp 11/02/16 05:00 11/03/16 03:32 Ventolin 0.042trength) - NEB 1 amp Q4H PRN Administration SHORT OF BREATH/WHEEZING Furosemide 100 mg 11/03/16 14:00 11/03/16 13:37 Lasix Injection - IVPUSH 100 mg BID@0600,1400 RENEE Administration Milrinone Lactate/Dextrose 100 mls @ 5.822 mls/hr 11/03/16 11:00 11/03/16 11:14 Milrinone 20mg/100ml Ivpb - IVPB 5.822 mls/hr TITR RENEE Administration 0.25 MCG/KG/MIN Insulin Aspart 1 vial 11/01/16 18:30 11/03/16 11:17 Novolog Vial Sliding Scale - SQ 2 units TIDAC RENEE Administration Protocol Insulin Detemir 15 units 11/03/16 22:00 Levemir Vial SQ HS [facility] Insulin Detemir 18 units 11/04/16 07:00 Levemir Vial SQ AM RENEE Metoprolol Succinate 50 mg 11/01/16 22:00 11/03/16 09:52 Toprol Xl - PO 50 mg BID RENEE Administration Nitroglycerin 1 inch 11/03/16 12:00 11/03/16 11:14 Nitro-Bid 2% Paste - TD 1 inch Q6HPO RENEE Administration Pantoprazole Sodium 20 mg 11/02/16 10:00 11/03/16 09:52 Protonix - PO 20 mg DAILY RENEE Administration Potassium Chloride 20 meq 11/02/16 10:00 11/03/16 09:52 K-Dur - PO 20 meq DAILY RENEE Administration Ranitidine HCl 150 mg 11/02/16 10:00 11/03/16 09:53 Zantac - PO 150 mg DAILY RENEE Administration Rivaroxaban 15 mg 11/02/16 10:00 11/03/16 09:52 Xarelto - PO 15 mg DAILY RENEE Administration Impression 1. CKD 2. CHF 3. hyponatremia likely from CHF 4. HTN 5. DM 6. anasarca 7. BPH Plan - sodium is improving - cont with lasix - discussed plan with pt and family at length - monitor lytes daily - would avoid thiazide diuretics - daily weights - discussed with medical team and pt appears to have improved form yesterday - also discussed fluid and salt restrictions with family - check ua, osms, tsh and cortisol
[2016-11-03 19:35] VITALS: BP 119/70; PULSE 90; TEMP 98.8
[2016-11-03] MEDS ORDERED: INSULIN DETEMIR 100 UNITS/ML MDV SQ SCH (22:00)
[2016-11-04] MEDS ORDERED: INSULIN DETEMIR 100 UNITS/ML MDV SQ SCH (07:00)
== END 2016-11-03 21:56 | disposition short-term general hospital (02) | DRG 194 ==
LOC: JER 13:50 → JERBED 17:19 → J4W 17:59
PROVIDERS: ADMIT Internal Medicine; ATTEND Internal Medicine
DX: I13.0 Hypertensive heart and chronic kidney disease with heart failure and stage 1 through stage 4 chronic kidney disease, or unspecified chronic kidney disease (principal); E87.1 Hypo-osmolality and hyponatremia; N18.4 Chronic kidney disease, stage 4 (severe); I50.33 Acute on chronic diastolic (congestive) heart failure; N17.9 Acute kidney failure, unspecified; D64.9 Anemia, unspecified; E78.5 Hyperlipidemia, unspecified; R09.89 Other specified symptoms and signs involving the circulatory and respiratory systems; E87.70 Fluid overload, unspecified; E11.65 Type 2 diabetes mellitus with hyperglycemia; R74.0 Nonspecific elevation of levels of transaminase and lactic acid dehydrogenase [LDH]; F41.8 Other specified anxiety disorders; I48.2 Chronic atrial fibrillation; N40.0 Benign prostatic hyperplasia without lower urinary tract symptoms
CPT/HCPCS: 36415; 71010-TC; 80048; 80053; 80061; 80076; 82550; 82553; 82570; 83036; 83721; 83735; 83880; 83935; 84100; 84295; 84439; 84443; 84484; 84540; 85025; 85027; 85610; 93005; 93010; 94640; 99284-25